=== PATIENT | female | born 2005 | race Caucasian/White ===

== ENCOUNTER 2025-01-14 14:43 | Emergency (ER) | payer OTHER, BC, SELFPAY ==
[2025-01-14 14:43] VITALS: BMI 26.1
[2025-01-14 14:51] VITALS: BP 122/85
[2025-01-14 15:13] LABS: Hematocrit 35.9 % (37.0-47.0); Hemoglobin 11.6 g/dL (12.0-16.0); Mean Corp Hgb Conc. 32.3 g/dL (33.0-37.0); Mean Corpuscular Volume 84.7 fL (81.0-99.0); Nucleated Red Blood Cells % 0 %; Platelet Count 187 10^3/uL (130-400); Red Cell Dist. Width 13.3 % (11.5-14.5)
[2025-01-14 15:31] LABS: ALT (SGPT) 13 U/L (0-35); AST (SGOT) 20 U/L (14-36); Albumin 4.4 g/dl (3.5-5.0); Alkaline Phosphatase 48 U/L (38-126); Blood Urea Nitrogen 9 mg/dl (7-17); Calcium 9.4 mg/dl (8.4-10.2); Carbon Dioxide 25 mmol/L (22-30); Chloride 108 mmol/L (98-107); Glucose 93 mg/dl (70-99); HCG, Serum Qualitative Screen Negative; Lipase 57 U/L (23-300); Potassium 4.3 mmol/L (3.5-5.1); Sodium 138 mmol/L (135-145); Total Protein 7.3 g/dl (6.3-8.2); eGFR > 60.00
[2025-01-14] MEDS: TORADOL 15 MG IV (17:09)
--- NOTE | 2025-01-14 17:09 | ED.GENMED ---
History of Present Illness
General
Chief Complaint: Abdominal Pain
Source: patient
Exam Limitations: none
Time Seen by Provider: 01/14/25 16:15
Nursing documentation reviewed up to this point in time: agreed with
History of Present Illness
History of Present Illness:
The patient is a 19-year-old female who presents to the emergency department lower abdominal pain. She reports initially noticing lower abdominal pain on morning she woke up associated with multiple episodes of diarrhea. Since
�diarrhea is improved although abdominal pain has persisted. She reports a constant dull lower abdominal pain with intermittent sharp pains on left > right side. Pain is associate with nausea although no episodes of vomiting. No fever or
chills. No radiation around the pain to back. No obvious anorexia however she does feel like pain is intensified with eating and moving. She denies any dysuria or hematuria. No abnormal vaginal bleeding or discharge. Her last menstrual period
was 2 weeks ago.
Apparently patient recently returned home from [facility] on Wednesday. One other girl that she traveled with was experiencing similar symptoms on Wednesday however they quickly were resolved.
Patient has a history of ovarian cyst. There is a family history of kidney stones.
Past History
Social History
Tobacco: Non-smoker
Review of Systems
Review of Systems
Allergies reviewed?: Yes
All Other Systems: ROS reviewed and negative except as documented in HPI and ROS
Phy Exam
Physical Exam
Physical Exam:
Vitals: Patient's vital signs are stable. Afebrile
General: Patient is well appearing, no acute distress
Skin: Warm and dry, no rashes or lesions
Head: Normocephalic, atraumatic
Eyes: Sclera nonicteric.
Throat: Protecting airway
Neck: Normal ROM, no cervical spine tenderness, no meningismus
Cardiac: Regular rate and rhythm, no murmurs.
Pulm: Normal respiratory effort, no wheezes, rales, rhonchi heard on exam
Abdomen: Abdomen soft. Mild tenderness in left pelvic/suprapubic region. No rebound tenderness or guarding. No palpable masses. No CVA tenderness.
Extremities: No evidence of cyanosis or edema
Neuro: AAOx3. Grossly intact.
Psychiatric: Normal affect.
Course
Orders/Labs/Results
Orders:
Orders
01/14/25 14:55
Test Result ONCE
01/14/25 15:03
Complete Blood Count/With Diff Urgent
Comprehensive Metabolic Panel Urgent
HCG, Serum Qualitative Screen Urgent
Lipase Urgent
01/14/25 17:06
0.9% Sodium Chloride 1000 ml [Nss] 1,000 ml IV BOLUS
Ketorolac [Toradol] 15 mg IV NOW STA
Pelvis (Non Obstetric) US [US Pelvis Only (non-obstetric)] Urgent
Comment:
Reason For Exam: left pelvic pain
Renal Only US [US Renal Only W/O Bladder] Urgent
Comment:
Reason For Exam: Left inguinal pain
01/14/25 17:08
Ketorolac [Toradol] 15 mg .ROUTE .STK-MED ONE
01/14/25 17:13
Urinalysis Reflex To Culture Urgent
Date Specimen was Collected: 01/14/25
Time Specimen was Collected: 17:11
01/14/25 18:54
CT Abd/pelvis W Iv Cont Urgent
Comment:
Reason For Exam: LLQ pain
Abnormal Lab Results
01/14/25
15:03
Hgb 11.6 L g/dL
(12.0-16.0)
Hct 35.9 L %
(37.0-47.0)
MCHC 32.3 L g/dL
(33.0-37.0)
MPV 12.6 H fL
(7.4-10.4)
Absolute Neuts (auto) 7.5 H 10^3/uL
(1.4-6.5)
Neutrophils % 80.8 H %
(42.2-75.2)
Lymphocytes % 13.6 L %
(20.5-51.1)
Chloride 108 H mmol/L
(98-107)
01/14/25 15:03
01/14/25 15:03
Vital Signs
Initial and Last Documented VS:
Initial Vital Signs
Temp Pulse Resp BP Pulse Ox
98.9 F 80 16 122/85 100
01/14/25 14:51 01/14/25 14:51 01/14/25 14:51 01/14/25 14:51 01/14/25 14:51
Last Documented Vital Signs
Temp Pulse Resp BP Pulse Ox
98.9 F 80 16 114/71 96
01/14/25 14:51 01/14/25 14:51 01/14/25 14:51 01/14/25 20:34 01/14/25 20:34
MDM/Problems Addressed
Differential Diagnosis Includes:
Not limited to: Ovarian cyst, ovarian torsion, mittelschmerz, ureterolithiasis, cystitis, pyelonephritis, appendicitis, colitis, etc.
MDM/Problems Addressed:
19-year-old female with persistent left lower abdominal discomfort, which was proceeded by one day of profuse diarrhea which has since resolved. No fevers, vomiting, or anorexia. Patient did recently return from a trip to go to [facility] and has a
friend who is experiencing similar symptoms, although less severe. Vitals and physical exam as above.
Differential broad. Basic labs were sent in triage without any clinically significant abnormalities. Will add on UA. Given location of pain � will start with pelvic ultrasound/renal ultrasound to rule out hydronephrosis or other evidence of
obstructing Stone. Toradol, IV fluids. Will reassess.
Update: urine with no evidence of infection or RBCs. Ultrasound without any abnormal findings. Given persistent pain � will proceed with CT scan for further evaluation. Patient did have some improvement in pain following toradol.
Update: CT scan reveals mild colitis in the descending colon. Given patient remains afebrile with no leukocytosis and diarrhea has improved - dp not feel antibiotics indicated. She has been unable to provide stool sample in ED however was given a
prescription for outpatient sample by urgent care. Feel stable for discharge home with return precautions, primary care follow up. Patient and patient�s family comfortable with plan.
Chronic conditions affecting care:
N/A
Acute Exacerbation and/or Progression of Chronic Illness:
N/A
*Radiology
Radiology exam reviewed: radiology read reviewed
*Pulse Oximetry
SaO2: 100
Oxygen Mode of Delivery: Room air
Patient hypoxic: no
*EKG
Interpreted by ED Provider?: NA
*Billiard Parlor Manager Interpretation
Rate: Billiard Par[employer] Manager- N/A
*Critical Care Note
Total Time (30-74mins, 75-104mins- exclusive of procedures): Not Applicable
Patient Management
Escalation/DeEscalation of care consider admission/obs:
Admit not indicated
ED Attending Note
-
Portions of this chart may have been created with voice recognition software.� Occasional wrong word or��sound alike� substitutions may have occurred due to the inherent limitations of voice recognition software.
Discharge Plan
Departure
Patient Disposition: Home (Routine Discharge)
Date of Disposition: 01/14/25
Time of Disposition: 20:32
Patient with high blood pressure during this ER visit?: No
Discharge Problem:
Colitis
Instructions: Colitis - Discharge instructions, Low-fiber diet
Prescriptions:
No Action
levothyroxine 25 mcg Tablet
25 mcg PO DAILY
Millipred DP 5 mg (21 tabs) Tablets,Dose Pack
5 mg PO DAILY
Referrals:
Idris Vaca MD [Family Provider] - Follow up in 2-3 days
Activity Restrictions/Additional Instructions:
RETURN TO THE EMERGENCY DEPARTMENT WITH ANY FEVERS, CHILLS, INTRACTABLE NAUSEA/VOMITING, DIARRHEA, SEVERE ABDOMINAL PAIN, WORSENING IN CURRENT SYMPTOMS, OR ANY OTHER CONCERNS
- As discussed�your CT scan showed evidence of mild colitis. Otherwise�your lab work was without any significant abnormalities.
- It is important to stay well-hydrated. You can take Tylenol and/or Motrin as needed for discomfort. I would follow a low fiber diet over the next few days.
- If your diarrhea returns/persist�you can use prescription for a stool sample as prescribed by urgent care.
-Follow-up with your primary care provider for further evaluation/management to ensure that your symptoms are improving
Monitor your symptoms closely and return to the emergency department with any acute worsening/new symptoms or any other concerns
Interventions
Interventions:
*Risk Screen - Suicide Last Done: 01/14/25 14:55
*General Assessment Last Done: 01/14/25 16:24
*Neglect/Abuse Screening Last Done: 01/14/25 14:55
*ED- Fall Risk Assessment Last Done: 01/14/25 16:24
*ED COVID-19 Vaccine History Last Done: 01/14/25 21:13
*Nursing Disposition Last Done: 01/14/25 21:13
HL-Fghrmg-Iufkbassnn Assessment Last Done: 01/14/25 16:24
Discharge Date and Time
Discharge Date/Time: 01/14/25 21:16
Print Language: PALESTINIAN
[2025-01-14] MEDS: NSS 1000 IV (17:10)
[2025-01-14 18:53] VITALS: BP 113/65
[2025-01-14 19:00] VITALS: BP 98/66
[2025-01-14 19:11] LABS: Urine Character Clear (Clear)
[2025-01-14 20:34] VITALS: BP 114/71
== END 2025-01-14 21:16 | disposition home or self-care (01) ==
LOC: EMR 14:43
PROVIDERS: Emergency Medicine; Physician Assistant; EMERGENCY PHYSICIAN Student in an Organized Health Care Education/Training Program; FAMILY PHYSICIAN Pediatrics
DX: K52.9 Noninfective gastroenteritis and colitis, unspecified (principal)
CPT/HCPCS: 99284; 96374; 96361; 74177; 76775; 76856; 80053; 81003; 83690; 84703; 85025; Q9967